=== PATIENT | male | born 1950 | race Caucasian/White ===

== ENCOUNTER 2019-08-17 13:44 | Emergency (ER) | payer BC, MEDICARE ==
--- NOTE | 2019-08-17 14:11 | RADIOLOGY REPORT (SQ) ---
EXAM DESCRIPTION: CT HEAD WITHOUT COMPLETED DATE/TIME: 08/17/2019 2:01 pm REASON FOR STUDY: t1 stroke alert COMPARISON: 04/17/2016. TECHNIQUE: Axial images acquired through the brain without intravenous contrast. Images reviewed wi th bone, brain and subdural windows. Additional sagittal and coronal reconstructions were generated. Images stored on PACS. All CT scanners at this facility use dose modulation, iterative reconstruction, and/or weight based d osing when appropriate to reduce radiation dose to as low as reasonably achievable (ALARA). [facility]: Dose Right [facility]: CareDose [facility]: Dose Right [facility]: Teradose 4D [facility]: SafeRent RADIATION DOSE: CT Rad equipment meets quality standard of care and radiation dose reduction techniq ues were employed. CTDIvol: 53.2 mGy. DLP: 1044 mGy-cm.mGy. LIMITATIONS: None. FINDINGS: VENTRICLES: Prominent. CEREBRUM: No masses. No hemorrhage. No midline shift. Areas of low density in the white matter mos t likely due to chronic micro-vascular ischemic change. No evidence for acute infarction. CEREBELLUM: No masses. No hemorrhage. No alteration of density. No evidence for acute infarction. EXTRAAXIAL SPACES: Age-related involutional change. No fluid collections. No masses. ORBITS AND GLOBE: No intra- or extraconal masses. Normal contour of globe without masses. CALVARIUM: No fracture. PARANASAL SINUSES: No fluid or mucosal thickening. SOFT TISSUES: No mass or hematoma. OTHER: No other significant finding. IMPRESSION: CHRONIC CHANGES OF ATROPHY AND MICROVASCULAR ISCHEMIA. NO ACUTE PROCESS. EVIDENCE OF ACUTE STROKE: NO. COMMENT: Pertinent positive or negative findings of the imaging study reported as a CRITICAL EXAM t o ER PROVIDER at14:05 on 08/17/2019. Category of Critical Exam: Stroke protocol. TECHNICAL DOCUMENTATION: JOB ID: [id number] Quality ID # [id number]: Final reports with documentation of one or more dose reduction techniques (e.g., Au tomated exposure control, adjustment of the mA and/or kV according to patient size, use of iterative reconstruction technique) 2010 [employer]- All Rights Reserved Reading location - IP/workstation name: [email or web address]
[2019-08-17 14:17] LABS: ABSOLUTE BASOPHILS # (AUTO) 0.1 10^3/uL (0.0-0.2); ABSOLUTE EOSINOPHILS # (AUTO) 0.1 10^3/uL (0.0-0.6); ABSOLUTE LYMPHOCYTES (AUTO) 2.1 10^3/uL (0.5-4.7); ABSOLUTE MONOCYTES (AUTO) 0.6 10^3/uL (0.1-1.4); ABSOLUTE NEUT (AUTO) 6.1 10^3/uL (1.7-8.2); EOSINOPHILS % (AUTO) 0.7 % (0-6); HEMATOCRIT 40.6 % (37.9-51.0); HEMOGLOBIN 13.9 g/dL (13.5-17.0); LYMPHOCYTES % (AUTO) 23.3 % (13-45); MEAN CORPUSCULAR HEMOGLOBIN 31.1 pg (27.0-33.4); MEAN CORPUSCULAR HGB CONC 34.2 g/dL (32.0-36.0); MEAN CORPUSCULAR VOLUME 91 fl (80-97); MONOCYTES % (AUTO) 7.1 % (3-13); PLATELET COUNT 254 10^3/uL (150-450); RED BLOOD COUNT 4.46 10^6/uL (4.35-5.55); RED CELL DISTRIBUTION WIDTH 15.5 % (11.5-14.0); SEGMENTED NEUTROPHILS % (AUTO) 67.9 % (42-78); TOTAL CELLS COUNTED % (AUTO) 100 %; WHITE BLOOD COUNT 8.9 10^3/uL (4.0-10.5)
[2019-08-17 14:21] LABS: INTERNATIONAL RATION (INR) 1.05
[2019-08-17 14:22] LABS: PARTIAL THROMBOPLASTIN TIME 31.8 SEC (23.5-35.8)
[2019-08-17 14:24] LABS: PROTHROMBIN TIME 13.7 SEC (11.4-15.4)
--- NOTE | 2019-08-17 14:36 | RADIOLOGY REPORT (SQ) ---
EXAM DESCRIPTION: CHEST SINGLE VIEW COMPLETED DATE/TIME: 08/17/2019 2:04 pm REASON FOR STUDY: t1 stroke alert COMPARISON: 12/28/2011 EXAM PARAMETERS: NUMBER OF VIEWS: One view. TECHNIQUE: Single frontal radiographic view of the chest acquired. RADIATION DOSE: NA LIMITATIONS: None. FINDINGS: LUNGS AND PLEURA: No opacities, masses or pneumothorax. No pleural effusion. MEDIASTINUM AND HILAR STRUCTURES: No masses. Contour normal. HEART AND VASCULAR STRUCTURES: Heart normal in size. Normal vasculature. BONES: No acute findings. HARDWARE: None in the chest. OTHER: No other significant finding. IMPRESSION: NO ACUTE RADIOGRAPHIC FINDING IN THE CHEST. TECHNICAL DOCUMENTATION: JOB ID: [id number] [employer]- All Rights Reserved Reading location - IP/workstation name: [email or web address]
[2019-08-17 14:39] LABS: ALBUMIN 4.5 g/dL (3.5-5.0); ALKALINE PHOSPHATASE 77 U/L (38-126); ANION GAP 8 (5-19); ASPARTATE AMINO TRANSFERASE 47 U/L (17-59); BILIRUBIN,DIRECT 0.1 mg/dL (0.0-0.4); BILIRUBIN,TOTAL 0.6 mg/dL (0.2-1.3); BLOOD UREA NITROGEN 16 mg/dL (7-20); CALCIUM 9.9 mg/dL (8.4-10.2); CARBON DIOXIDE 29 mmol/L (22-30); CHLORIDE 105 mmol/L (98-107); CREATINE KINASE 61 U/L (55-170); GLUCOSE 86 mg/dL (75-110); POTASSIUM 4.1 mmol/L (3.6-5.0); TOTAL PROTEIN 7.5 g/dL (6.3-8.2)
[2019-08-17 14:50] LABS: CREATINE KINASE MB 0.97 ng/mL (<4.55)
[2019-08-17 14:59] LABS: TROPONIN I < 0.012 ng/mL
--- NOTE | 2019-08-17 16:46 | ER Document Report ---
ED Dizziness/Weakness - General Chief Complaint: Altered Mental Status Stated Complaint: POSSIBLE STROKE Time Seen by Provider: 08/17/19 14:13 Primary Care Provider: RIOS RAI MD [Primary Care Provider] - Follow up as needed Information source: Patient, Relative TRAVEL OUTSIDE OF THE [place] IN LAST 30 DAYS: No - HPI Notes: Patient comes in with son. Son states that patient has had an episode in the past where he was diagnosed with a TIA. He said that he was also diagnosed with spinal stenosis. 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 Patient states when he was diagnosed with this he was treated at [place]. At that time he was having weakness trouble speaking and was emotional. He was also having trouble walking at that time. This was approximately 1 year ago. He states today once again patient was emotional and having some trouble walking. He states he was told that if he had the symptoms he was to bring the patient for evaluation. Patient has significant dementia and cannot offer any significant history. Patient symptoms seem to have resolved per son by the time he arrives in the emergency department. Symptoms are moderate. They were transient. Nothing made them better or worse. No known radiation symptoms. Patient cannot characterize the symptoms. No known recent falls or trauma. No known recent cough cold congestion or fevers. No known vomiting or diarrhea recently. She has not been complained of any pain. Patient has not been appreciated per son to have any trouble speaking swallowing or moving and extremity. - Related Data Allergies/Adverse Reactions: No Known Allergies Allergy (Verified 05/21/16 10:10) Past Medical History - General Information source: Patient, Relative - Social History Smoking Status: Former Smoker Frequency of alcohol use: None Drug Abuse: None Family History: Reviewed & Not Pertinent Patient has suicidal ideation: No Patient has homicidal ideation: No - Past Medical History Cardiac Medical History: Reports: Hx Hypertension Denies: Hx Coronary Artery Disease, Hx Heart Attack Pulmonary Medical History: Denies: Hx Asthma, Hx Bronchitis, Hx COPD, Hx Pneumonia Neurological Medical History: Denies: Hx Cerebrovascular Accident, Hx Seizures GI Medical History: Denies: Hx Hepatitis, Hx Hiatal Hernia, Hx Ulcer Musculoskeletal Medical History: Denies Hx Arthritis Infectious Medical History: Denies: Hx Hepatitis Past Surgical History: Denies: Hx Open Heart Surgery, Hx Pacemaker - Immunizations Hx Diphtheria, Pertussis, Tetanus Vaccination: Yes Review of Systems - Review of Systems -: Yes ROS unobtainable due to patient's medical condition - Review of symptoms not obtainable due to patient's dementia Physical Exam - Vital signs Vitals: Resp 15 08/17/19 14:04 Interpretation: Bradycardic - General General appearance: Appears well, Alert - HEENT Head: Normocephalic, Atraumatic Eyes: Normal Pupils: PERRL - Respiratory Respiratory status: No respiratory distress Chest status: Nontender Breath sounds: Normal Chest palpation: Normal - Cardiovascular Rhythm: Bradycardia Heart sounds: Normal auscultation Murmur: No - Abdominal Inspection: Normal Distension: No distension Bowel sounds: Normal Tenderness: Nontender Organomegaly: No organomegaly - Back Back: Normal, Nontender - Extremities General upper extremity: Normal inspection, Nontender, Normal color, Normal ROM, Normal temperature General lower extremity: Normal inspection, Nontender, Normal color, Normal ROM, Normal temperature, Normal weight bearing. No: Emma's sign - Neurological Neuro grossly intact: Yes Cognition: Confused Orientation: Disoriented to time Dairy Coma Scale Eye Opening: Spontaneous Dairy Coma Scale Verbal: Confused Dairy Coma Scale Motor: Obeys Commands Dairy Coma Scale Total: 14 Speech: Normal Motor strength normal: LUE, RUE, LLE, RLE Sensory: Normal - Psychological Associated symptoms: Normal affect, Normal mood - Skin Skin Temperature: Warm Skin Moisture: Dry Skin Color: Normal Course - Re-evaluation Re-evalutation: 08/17/19 16:49 Patient is brought in by son due to some trouble with gait today and emotional lability. The symptoms have now resolved. He was brought in because the son states in the past this was when the patient had a TIA. However at this time I can find no focal neurological deficits. He appears to be in his normal state of health and son verifies this. His head CT was unremarkable. His vital signs are also unremarkable. He has a mild bradycardia but a normal blood pressure. His laboratories are unremarkable. He has had extensive cerebrovascular work-up in the past. Patient is on a blood thinner currently. I do not feel that patient would benefit from inpatient admission since he is back to baseline. I did discuss this with the son who understands and is in agreement with discharge. - Vital Signs Vital signs: Temp Pulse Resp BP Pulse Ox 97.8 F 54 L 16 134/66 H 98 08/17/19 14:26 08/17/19 14:27 08/17/19 14:27 08/17/19 14:27 08/17/19 14:27 - Laboratory Result Diagrams: 08/17/19 14:08 08/17/19 14:08 Laboratory results interpreted by me: 08/17/19 14:08 RDW 15.5 H - Diagnostic Test Radiology reviewed: Image reviewed, Reports reviewed - EKG Interpretation by Me Rate: Bradycardia - 53 Rhythm: NSR Flushing/QRS: No: Right axis deviation, Left axis deviation Voltage: Decreased voltage Discharge - Discharge Clinical Impression: Altered mental status, unspecified Qualifiers: Altered mental status type: unspecified Qualified Code(s): R41.82 - Altered mental status, unspecified Condition: Stable Disposition: HOME, SELF-CARE Instructions: Dementia ([facility]) Additional Instructions: Please call your primary doctor as soon as possible to arrange follow-up Referrals: RIOS RAI MD [Primary Care Provider] - Follow up tomorrow
--- NOTE | 2019-08-17 16:55 | EKG REPORT ---
SEVERITY:- OTHERWISE NORMAL ECG - SINUS RHYTHM LOW VOLTAGE IN FRONTAL LEADS : Confirmed by: Tahimna Ly MD 17-Aug-2019 16:54:20
[2019-08-17 17:23] VITALS: BP 132/66
== END 2019-08-17 17:22 | disposition home or self-care (01) ==
LOC: ER 13:44
DX: R41.82 Altered mental status, unspecified (principal); R45.86 Emotional lability; R26.2 Difficulty in walking, not elsewhere classified; F03.90 Unspecified dementia, unspecified severity, without behavioral disturbance, psychotic disturbance, mood disturbance, and anxiety; R00.1 Bradycardia, unspecified; I10 Essential (primary) hypertension; Z86.73 Personal history of transient ischemic attack (TIA), and cerebral infarction without residual deficits; Z87.891 Personal history of nicotine dependence; Z79.899 Other long term (current) drug therapy
CPT/HCPCS: 36415; 70450; 71045; 80053; 82550; 82553; 82962; 84484; 85025; 85610; 85730; 93005; 93010; 99285

== ENCOUNTER 2020-04-07 17:00 | Emergency (ER) | payer BC, MEDICARE ==
[2020-04-07 17:13] VITALS: BP 139/59
--- NOTE | 2020-04-07 17:34 | ER Document Report ---
ED Medical Screen (RME) - General Chief Complaint: Rib Pain Stated Complaint: FALL/HEAD INJURY Time Seen by Provider: 04/07/20 17:26 Primary Care Provider: RIOS RAI MD [Primary Care Provider] - Follow up as needed Mode of Arrival: Wheelchair Information source: Patient Notes: 70-year-old male presented to ED for complaint of fall hitting his head last n ight. He states he got dizzy when he got up to go to the bathroom and when he went back to bed. He is is accompanied by his son because he does have a history of a stroke and Alzheimer's. He is patient states that he has right rib and right shoulder pain. Son states he is not sure exactly what happened but he did fall. Patient states he does smoke a pack a day and drinks 2-3 beers a day. Has bruising to the right shoulder and right arm. I have greeted and performed a rapid initial assessment of this patient. A comprehensive ED assessment and evaluation of the patient, analysis of test results and completion of medical decision making process will be conducted by an additional ED providers. TRAVEL OUTSIDE OF THE [place] IN LAST 30 DAYS: No - Related Data Allergies/Adverse Reactions: No Known Allergies Allergy (Verified 05/21/16 10:10) Home Medications: Clonazepam, Gabapentin, Trazadone Past Medical History - Past Medical History Cardiac Medical History: Reports: Hx Hypertension Denies: Hx Coronary Artery Disease, Hx Heart Attack Pulmonary Medical History: Denies: Hx Asthma, Hx Bronchitis, Hx COPD, Hx Pneumonia Neurological Medical History: Denies: Hx Cerebrovascular Accident, Hx Seizures GI Medical History: Denies: Hx Hepatitis, Hx Hiatal Hernia, Hx Ulcer Musculoskeltal Medical History: Denies Hx Arthritis Infectious Medical History: Denies: Hx Hepatitis Past Surgical History: Denies: Hx Open Heart Surgery, Hx Pacemaker - Immunizations Hx Diphtheria, Pertussis, Tetanus Vaccination: Yes Physical Exam - Vital signs Vitals: Temp Pulse Resp BP Pulse Ox 98.5 F 50 L 16 139/59 H 99 04/07/20 17:10 04/07/20 17:10 04/07/20 17:10 04/07/20 17:10 04/07/20 17:10 Course - Vital Signs Vital signs: Temp Pulse Resp BP Pulse Ox 98.5 F 50 L 16 139/59 H 99 04/07/20 17:27 04/07/20 17:10 04/07/20 17:10 04/07/20 17:10 04/07/20 17:10 Doctor's Discharge - Discharge Referrals: RIOS RAI MD [Primary Care Provider] - Follow up as needed
--- NOTE | 2020-04-07 18:27 | RADIOLOGY REPORT (SQ) ---
EXAM DESCRIPTION: SHOULDER RIGHT 2 OR MORE VIEWS IMAGES COMPLETED DATE/TIME: 04/07/2020 6:13 pm REASON FOR STUDY: Fall pain right ribs right shoulder COMPARISON: None. NUMBER OF VIEWS: Three views. TECHNIQUE: Internal rotation, external rotation, and Y view images acquired of the right shoulder. LIMITATIONS: None. FINDINGS: MINERALIZATION: Normal. BONES: No acute fracture. No worrisome bone lesions. JOINTS: No dislocation. VISUALIZED LUNGS AND RIBS: No pneumothorax. No rib fracture. SOFT TISSUES: No radiopaque foreign body. OTHER: No other significant finding. IMPRESSION: NEGATIVE STUDY OF THE RIGHT SHOULDER. NO RADIOGRAPHIC EVIDENCE OF ACUTE INJURY. TECHNICAL DOCUMENTATION: JOB ID: [id number] 2010 [employer]- All Rights Reserved Reading location - IP/workstation name: [email or web address]
--- NOTE | 2020-04-07 18:28 | RADIOLOGY REPORT (SQ) ---
EXAM DESCRIPTION: RIBS RIGHT W/PA CHEST IMAGES COMPLETED DATE/TIME: 04/07/2020 6:13 pm REASON FOR STUDY: Fall pain right ribs right shoulder COMPARISON: None. TECHNIQUE: Frontal view of the chest and additional views of the right ribs acquired. NUMBER OF VIEWS: Three views LIMITATIONS: None. FINDINGS: FRONTAL CXR: No pneumothorax. No pleural effusion. No atelectasis or infiltrates. RIBS: No displaced rib fractures. No lytic or blastic bony lesions. OTHER: No other significant finding. IMPRESSION: NO PNEUMOTHORAX. NO DISPLACED RIB FRACTURES. COMMENT: SITE OF TRAUMA/COMPLAINT MARKED/STAMP COMPLETED: No TECHNICAL DOCUMENTATION: JOB ID: [id number] 2010 [employer]- All Rights Reserved Reading location - IP/workstation name: [email or web address]
--- NOTE | 2020-04-07 19:00 | ER Document Report ---
ED General - General Mode of Arrival: Wheelchair TRAVEL OUTSIDE OF THE [place] IN LAST 30 DAYS: No - Related Data Home Medications: Clonazepam, Gabapentin, Trazadone <JAMISONADRYANNEW Bustamante - Last Filed: 04/07/20 18:53> <TEERAZA A - Last Filed: 04/07/20 21:23> - General Chief Complaint: Rib Pain Stated Complaint: FALL/HEAD INJURY Time Seen by Provider: 04/07/20 17:26 Primary Care Provider: RIOS RAI MD [Primary Care Provider] - Follow up as needed Notes: CHIEF COMPLAINT: Multiple injuries from fall last night HPI: History is obtained from the patient and the son, patient is a poor historian secondary to both alcoholism and dementia history. Son indicates patient has a prior history of stroke, apparently had a fall last night, patient walks with a cane normally. Patient states he did strike his head. Patient is up-to-date on his tetanus vaccination. Patient also complaining of right rib pain. Denies abdominal pain. Denies hip pain. Denies headache or neck pain at this time. ROS: See HPI - all other systems were reviewed and are otherwise negative Constitutional: no fever or recent illness Eyes: no drainage, no blurred vision ENT: no runny nose, no sore throat, positive soft tissue swelling to forehead Cardiovascular: Positive chest wall pain Resp: no SOB, no cough GI: no vomiting, no diarrhea : no dysuria Integumentary: no rash Allergy: no hives Musculoskeletal: no extremity pain or swelling Neurological: no numbness/tingling, no weakness MEDICATIONS: I agree with the patient medications as charted by the RN. ALLERGIES: I agree with the allergies as charted by the RN. PAST MEDICAL HISTORY/PAST SURGICAL HISTORY: Reviewed and agree as charted by RN. SOCIAL HISTORY: Reviewed and agree as charted by RN. FAMILY HISTORY: No significant familial comorbid conditions directly related to patient complaint EXAM: Reviewed vital signs as charted by RN. CONSTITUTIONAL: Airway patent; alert and oriented and responds inappropriately to questions. Well-appearing, well-nourished HEAD: Normocephalic, soft tissue swelling with an abrasion over the right eyebrow EYES: PERRL; EOM intact; Conjunctivae clear, sclerae non-icteric ENT: Midface is stable without tenderness; normal nose; no bleeding; normal pharynx, normal voice, no stridor, no intraoral lacerations or dental trauma noted; no hemotympanum NECK: Trachea is midline; spine non-tender, no step-offs, good range of motion; no contusions or hematomas CARD: Normal symmetric pulses; RRR; no murmurs, no clicks, no rubs, no gallops RESP: Normal chest excursion with respiration; chest wall appears atraumatic without ecchymoses or crepitance; Breath sounds with some scattered rhonchi noted. Pulse oximetry 99% on room air not hypoxic ABD/GI: Appears atraumatic without contusions or hematomas; non-distended, soft, non-tender, no rebound, no guarding; no palpable organomegaly or masses PELVIS: Stable, nontender BACK: The back appears atraumatic, no step-offs; spine is nontender; there is no CVA tenderness EXT: Normal ROM in all joints; non-tender to palpation; no cyanosis, no effusions, no edema SKIN: Normal color for age and race; warm; dry; good turgor; no apparent lesions NEURO: Moves all extremities equally; Motor and sensory function intact PSYCH: The patient's mood and manner are appropriate. Patient is a poor historian and is somewhat confused about his fall does not provide any information specifically about why he fell. MDM: 70-year-old male who is a alcoholic and a poor historian brought in for evaluation after a fall. Does have head trauma, denies headache but son indicates that patient oftentimes does not speak up when things hurt. Given his history and the unknown reason for his fall will obtain CT of the head and cervical spine sent indicates that he has had prior cervical fusion. Patient has some pain in the right lateral lower rib cage without visible bruising or crepitus. Initial x-rays were done via triage process did not show acute findings but given the patient's age and fall and risk of increased injury with poor history will obtain CT of the chest to evaluate for pulmonary contusion or rib fracture. He has absolutely no abdominal pain or visible abdominal bruising on exam and is ambulatory, low suspicion for pelvic or hip fracture. (NEW BRIGHT) - Related Data Allergies/Adverse Reactions: No Known Allergies Allergy (Verified 05/21/16 10:10) Past Medical History - General Information source: Patient - Social History Smoking Status: Current Every Day Smoker Family History: Reviewed & Not Pertinent Patient has homicidal ideation: No - Past Medical History Cardiac Medical History: Reports: Hx Hypertension Denies: Hx Coronary Artery Disease, Hx Heart Attack Pulmonary Medical History: Denies: Hx Asthma, Hx Bronchitis, Hx COPD, Hx Pneumonia Neurological Medical History: Denies: Hx Cerebrovascular Accident, Hx Seizures GI Medical History: Denies: Hx Hepatitis, Hx Hiatal Hernia, Hx Ulcer Musculoskeletal Medical History: Denies Hx Arthritis Infectious Medical History: Denies: Hx Hepatitis Past Surgical History: Denies: Hx Open Heart Surgery, Hx Pacemaker - Immunizations Hx Diphtheria, Pertussis, Tetanus Vaccination: Yes <NEW BRIGHT - Last Filed: 04/07/20 18:53> Physical Exam - Vital signs Vitals: Temp Pulse Resp BP Pulse Ox 98.5 F 50 L 16 139/59 H 99 04/07/20 17:10 04/07/20 17:10 04/07/20 17:10 04/07/20 17:10 04/07/20 17:10 Course - Laboratory Result Diagrams: 04/07/20 19:00 04/07/20 19:00 <RAZA OLIVEIRA - Last Filed: 04/07/20 21:23> - Re-evaluation Re-evalutation: 04/07/20 21:21 Patient was signed out to me at shift change by New Bowden NP. Pending patient's imaging results. Imaging results returned as negative for any acute injuries. Per plan discussed with New the patient will be discharged to home to the son's care. He is stable and appropriate for discharge and outpatient follow-up. (RAZA OLIVEIRA) - Vital Signs Vital signs: Temp Pulse Resp BP Pulse Ox 98.5 F 50 L 17 139/59 H 99 04/07/20 17:27 04/07/20 17:10 04/07/20 18:55 04/07/20 17:10 04/07/20 18:55 - Laboratory Laboratory results interpreted by me: 04/07/20 04/07/20 04/07/20 19:00 19:00 19:08 RDW 14.3 H Anion Gap 3 L ALT 56 H Urine Ascorbic Acid 20 H Discharge <NEW BRIGHT - Last Filed: 04/07/20 18:53> <TEERAZA Curtis - Last Filed: 04/07/20 21:23> - Discharge Clinical Impression: Fall Qualifiers: Encounter type: initial encounter Qualified Code(s): W19.XXXA - Unspecified fall, initial encounter Chest wall contusion Qualifiers: Encounter type: initial encounter Laterality: unspecified laterality Qualified Code(s): S20.219A - Contusion of unspecified front wall of thorax, initial encounter Head injury Qualifiers: Encounter type: initial encounter Qualified Code(s): S09.90XA - Unspecified injury of head, initial encounter Condition: Stable Disposition: HOME, SELF-CARE Instructions: Rib Contusion ([facility]) Additional Instructions: Follow-up with your regular doctor in 2 to 3 days for reevaluation. Return here or any ER immediately with any new, persistent or worsening symptoms. Referrals: RIOS RAI MD [Primary Care Provider] - Follow up as needed
[2020-04-07 19:14] LABS: ABSOLUTE BASOPHILS # (AUTO) 0.1 10^3/uL (0.0-0.2); ABSOLUTE EOSINOPHILS # (AUTO) 0.1 10^3/uL (0.0-0.6); ABSOLUTE LYMPHOCYTES (AUTO) 2.6 10^3/uL (0.5-4.7); ABSOLUTE MONOCYTES (AUTO) 0.9 10^3/uL (0.1-1.4); BASOPHILS % (AUTO) 0.7 % (0-2); EOSINOPHILS % (AUTO) 1.2 % (0-6); HEMATOCRIT 41.8 % (37.9-51.0); HEMOGLOBIN 14.1 g/dL (13.5-17.0); LYMPHOCYTES % (AUTO) 27.2 % (13-45); MEAN CORPUSCULAR HEMOGLOBIN 31.5 pg (27.0-33.4); MEAN CORPUSCULAR HGB CONC 33.8 g/dL (32.0-36.0); MEAN CORPUSCULAR VOLUME 93 fl (80-97); MONOCYTES % (AUTO) 8.8 % (3-13); PLATELET COUNT 237 10^3/uL (150-450); RED BLOOD COUNT 4.48 10^6/uL (4.35-5.55); RED CELL DISTRIBUTION WIDTH 14.3 % (11.5-14.0); SEGMENTED NEUTROPHILS % (AUTO) 62.1 % (42-78); TOTAL CELLS COUNTED % (AUTO) 100 %; WHITE BLOOD COUNT 9.7 10^3/uL (4.0-10.5)
[2020-04-07 19:24] LABS: ALBUMIN 3.9 g/dL (3.5-5.0); ALKALINE PHOSPHATASE 61 U/L (38-126); ASPARTATE AMINO TRANSFERASE 35 U/L (17-59); BILIRUBIN,TOTAL 0.4 mg/dL (0.2-1.3); BLOOD UREA NITROGEN 14 mg/dL (7-20); CALCIUM 9.3 mg/dL (8.4-10.2); CARBON DIOXIDE 29 mmol/L (22-30); CHLORIDE 106 mmol/L (98-107); CREATINE KINASE 94 U/L (55-170); GLUCOSE 95 mg/dL (75-110); TOTAL PROTEIN 6.5 g/dL (6.3-8.2)
[2020-04-07 19:25] LABS: ALCOHOL < 10 mg/dL (NONE DETECTED); INTERNATIONAL RATION (INR) 1.08
[2020-04-07 19:30] LABS: ANION GAP 3 (5-19)
[2020-04-07 19:35] LABS: CREATINE KINASE MB 1.86 ng/mL (<4.55)
[2020-04-07 19:37] LABS: TROPONIN I < 0.012 ng/mL
[2020-04-07 19:43] LABS: APPEARANCE,URINE CLOUDY; BILIRUBIN,URINE NEGATIVE (NEGATIVE); GLUCOSE, URINE NEGATIVE (NEGATIVE); KETONES,URINE NEGATIVE (NEGATIVE); LEUKOCYTE ESTERASE,URINE NEGATIVE (NEGATIVE); NITRITE,URINE NEGATIVE (NEGATIVE); PROTEIN,URINE NEGATIVE (NEGATIVE); URINE SPECIFIC GRAVITY 1.009; UROBILINOGEN,URINE NEGATIVE mg/dL (<2.0)
[2020-04-07 19:48] LABS: COLOR,URINE YELLOW
--- NOTE | 2020-04-07 20:27 | RADIOLOGY REPORT (SQ) ---
CT BRAIN AND CERVICAL SPINE HISTORY: Trauma. COMPARISON: None. TECHNIQUE: CT scan of the brain and cervical spine was performed without IV contrast. This exam was performed according to our departmental dose-optimization program, which includes automated exposure control, adjustment of the mA and/or kV according to patient size and/or use of iterative reconstruction technique. FINDINGS: BRAIN: Diffuse involutional changes are present. There are scattered areas of hypoattenuation within the periventricular white matter, which likely represent chronic microvascular ischemia. There is an old lacunar infarct in the right basal ganglia and right thalamus. No evidence of acute infarction, intracranial hemorrhage, extra-axial fluid collection, or midline shift. No air-fluid levels are seen in the paranasal sinuses to suggest acute sinusitis. No depressed skull fracture. CERVICAL SPINE: No acute cervical fracture or prevertebral soft tissue swelling. There is straightening of the normal cervical lordosis, which may be due to cervical collar, muscle spasm, or patient positioning. There is mild multilevel degenerative disc disease as well as facet DJD throughout the cervical spine. 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 The spinal canal is poorly visualized due to artifact. IMPRESSION: 1. No acute intracranial hemorrhage. 2. No acute fracture or subluxation of the cervical spine.
--- NOTE | 2020-04-07 20:36 | RADIOLOGY REPORT (SQ) ---
CT CHEST WITH IV CONTRAST HISTORY: Trauma. COMPARISON: None. TECHNIQUE: CT scan of the chest was performed with IV contrast. This exam was performed according to our departmental dose-optimization program, which includes automated exposure control, adjustment of the mA and/or kV according to patient size and/or use of iterative reconstruction technique. FINDINGS: The heart size is normal without pericardial effusion. No mediastinal hematoma is seen. No pulmonary contusion, pleural effusion, or pneumothorax. The thoracic aorta is normal caliber. No acute fracture is seen. IMPRESSION: No acute thoracic findings. No acute fracture.
--- NOTE | 2020-04-08 19:04 | EKG REPORT ---
SEVERITY:- OTHERWISE NORMAL ECG - SINUS RHYTHM LOW VOLTAGE IN FRONTAL LEADS : Confirmed by: Tahmina Ly MD 08-Apr-2020 19:03:35
== END 2020-04-07 21:34 | disposition home or self-care (01) ==
LOC: ER 17:00
DX: S20.219A Contusion of unspecified front wall of thorax, initial encounter (principal); S00.211A Abrasion of right eyelid and periocular area, initial encounter; W19.XXXA Unspecified fall, initial encounter; Y92.003 Bedroom of unspecified non-institutional (private) residence as the place of occurrence of the external cause; R09.89 Other specified symptoms and signs involving the circulatory and respiratory systems; F03.90 Unspecified dementia, unspecified severity, without behavioral disturbance, psychotic disturbance, mood disturbance, and anxiety; F10.20 Alcohol dependence, uncomplicated; I10 Essential (primary) hypertension; F17.200 Nicotine dependence, unspecified, uncomplicated; Z98.1 Arthrodesis status; Z79.899 Other long term (current) drug therapy
CPT/HCPCS: 36415; 70450; 71260; 72125; 80053; 80307; 81001; 82550; 82553; 84484; 85025; 85610; 93005; 93010; 99284